=== PATIENT | male | born 1995 | race Caucasian/White ===

== ENCOUNTER 2019-08-01 19:41 | Emergency (ER) | payer OTHER ==
[~2019-08-01] VITALS: Ht 180.3 cm; Wt 86.4 kg
[2019-08-01] MEDS ORDERED: NS 1,000 ML IV ONE ×2 (20:00→22:45)
[2019-08-01] MEDS ORDERED: MORPHINE 2 MG/ML 1ML VIAL (J2270) As Ordered ONE (20:01)
[2019-08-01] MEDS: MORPHINE 2 MG/ML 1ML VIAL (J2270) IV PRN ×2 (20:04→20:32)
[2019-08-01 20:15] LABS: BASO # 0.1 10^3/uL (0.0-0.2); BASO % 0.9 % (0.0-1.0); EOS # 0.2 10^3/uL (0.0-0.5); HEMATOCRIT 41.7 % (42.0-52.0); HEMOGLOBIN 14.5 g/dl (13.5-17.5); LYMPH # 4.1 10^3/uL (1.5-5.0); LYMPH % 38.5 % (24.0-44.0); MEAN CORPUSCULAR HEMOGLOBIN 29.7 pg (27.0-33.0); MEAN CORPUSCULAR HGB CONC 34.8 g/dl (32.0-36.5); MEAN CORPUSCULAR VOLUME 85.5 fl (80.0-96.0); MONO % 9.5 % (0.0-5.0); NEUTROPHILS # 5.1 10^3/uL (1.5-8.5); NEUTROPHILS % 48.8 % (36.0-66.0); PLATELET COUNT, AUTOMATED 341 10^3/uL (150-450); RED BLOOD COUNT 4.88 10^6/uL (4.30-6.10); WHITE BLOOD COUNT 10.5 10^3/uL (4.0-10.0)
[2019-08-01] MEDS ORDERED: ISOVUE-370 76% 100ML VIAL (Q9967) As Ordered ONE (20:38)
[2019-08-01 20:45] LABS: ALBUMIN 4.1 GM/DL (3.2-5.2); ALT/SGPT 28 U/L (12-78); BILIRUBIN,DIRECT 0.1 MG/DL (0.0-0.2); BILIRUBIN,TOTAL 0.3 MG/DL (0.2-1.0); BLOOD UREA NITROGEN 14 MG/DL (7-18); CALCIUM LEVEL 9.2 MG/DL (8.5-10.1); CARBON DIOXIDE LEVEL 25 MEQ/L (21-32); CHLORIDE LEVEL 108 MEQ/L (98-107); CREATININE FOR GFR 1.05 MG/DL (0.70-1.30); GLOMERULAR FILTRATION RATE > 60.0 (>60); GLUCOSE, FASTING 112 MG/DL (70-100); LIPASE 109 U/L (73-393); POTASSIUM SERUM 3.6 MEQ/L (3.5-5.1); SODIUM LEVEL 143 MEQ/L (136-145); TOTAL PROTEIN 6.8 GM/DL (6.4-8.2)
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
[2019-08-01] MEDS ORDERED: TAMSULOSIN 0.4 MG CAP PO ONE (21:30)
[2019-08-01] MEDS ORDERED: KETOROLAC 30 MG/ML VIAL (J1885) IV ONE (21:30)
[2019-08-01] MEDS ORDERED: CEFD300C PO (22:43)
[2019-08-01] MEDS ORDERED: KETO10TAB PO (22:43)
[2019-08-01] MEDS ORDERED: FLOM0.4C39 PO (22:43)
[2019-08-01] MEDS ORDERED: ONDA4TAB6 PO (22:44)
[2019-08-01 23:25] VITALS: BP 121/81
[2019-08-01 23:29] LABS: APPEARANCE, URINE CLEAR (CLEAR); BACTERIA, URINE AUTO NEGATIVE (NEGATIVE); BILIRUBIN, URINE AUTO NEGATIVE (NEGATIVE); BLOOD, URINE BLOOD 3+ (NEGATIVE); COLOR, URINE YELLOW (YELLOW); GLUCOSE, URINE (UA) AUTO NEGATIVE (NEGATIVE); KETONE, URINE AUTO 1+ mg/dL (NEGATIVE); LEUKOCYTE ESTERASE, URINE AUTO NEGATIVE (NEGATIVE); MUCUS, URINE SMALL (NEGATIVE); NITRITE, URINE AUTO NEGATIVE (NEGATIVE); PROTEIN, URINE AUTO NEGATIVE (NEGATIVE); RBC, URINE AUTO TNTC /HPF (0-3); SQUAMOUS EPITHELIAL CELL UR AU 0 /HPF (0-6); UROBILINOGEN, URINE AUTO 0.2 mg/dL (0.0-2.0); WBC, URINE AUTO 3 /HPF (0-3)
[2019-08-01] MEDS ORDERED: CEFDINIR 300 MG CAP (OMNICEF) PO ONE (23:30)
[2019-08-01] MEDS ORDERED: OXYCODONE/APAP 5MG/325MG(BULK FOR ED) 1 TABLET PO ONE (23:30)
[2019-08-01 23:55] LABS: SPECIFIC GRAVITY URINE AUTO >1.060 (1.002-1.035)
== END 2019-08-01 23:51 | disposition home or self-care (01) ==
LOC: M ED 19:41
DX: N20.1 Calculus of ureter (principal); N23 Unspecified renal colic
CPT/HCPCS: 74177; 76870; 80047; 80048; 80076; 81001; 83690; 85025; 93976; 96361; 96374; 96375; 99283; J1885; J2270; Q9967

== ENCOUNTER 2019-08-04 06:52 | Emergency (ER) | payer OTHER ==
[~2019-08-04] VITALS: Ht 177.8 cm; Wt 86.4 kg
[~2019-08-04 06:52] MED LIST: CEFD300C PO; FLOM0.4C39 PO; KETO10TAB PO; ONDA4TAB6 PO
[2019-08-04] MEDS ORDERED: ONDANSETRON 4MG/2ML VIAL (J2405) IV ONE (07:15)
[2019-08-04] MEDS ORDERED: KETOROLAC 30 MG/ML VIAL (J1885) IV ONE ×2 (07:15→08:00)
--- NOTE | 2019-08-04 09:11 | REP ---
CT abdomen and pelvis without IV or oral contrast: Renal stone protocol. History: Right renal colic. Comparison study: August 01, 2019. CT findings: Digital preliminary injector assembler radiograph is unremarkable. The lung bases are clear on axial CT images. There is no evidence of pleural effusion or pulmonary edema. The liver and the spleen are normal in size homogeneous in texture. No abnormality is noted in the gallbladder or the pancreas. Normal adrenal glands are seen bilaterally. No retroperitoneal mass or adenopathy is observed. Normal appendix is seen. Small and large intestinal bowel loops are unremarkable. Seminal vesicles and prostate are unremarkable. There is a urinary tract calculus at the back wall the bladder 3 mm in diameter at the ureterovesical orifice which may be either recently passed or in the intramural segment of the ureterovesical junction. There is mild to moderate right-sided hydronephrosis and mild right hydroureter. No other ureteral calculus is appreciated. There is no intrarenal calculus on either side. No left-sided hydronephrosis. There is minimal peritoneal fluid in the pelvic reflections. No abdominal wall defect is seen. No bony abnormality is observed. Impression: 3 mm urinary tract calculus at the posterior wall of the urinary bladder with mild right-sided hydronephrosis and hydroureter. Either recently passed stone versus 3 mm stone in the intramural segment of the ureterovesical junction. Otherwise negative. Electronically Signed by Alexander Dash MD 08/04/2019 12:51 P
[2019-08-04 11:11] VITALS: BP 114/59
== END 2019-08-04 11:13 | disposition home or self-care (01) ==
LOC: M ED 06:52
DX: N20.1 Calculus of ureter (principal)
CPT/HCPCS: 74176; 96374; 96375; 99284; J1885; J2405

== ENCOUNTER → 2019-08-13 | Outpatient (REF) | payer OTHER ==
[2019-08-13 18:47] LABS: APPEARANCE, URINE CLEAR (CLEAR); BACTERIA, URINE AUTO NEGATIVE (NEGATIVE); BILIRUBIN, URINE AUTO NEGATIVE (NEGATIVE); BLOOD, URINE BLOOD NEGATIVE (NEGATIVE); COLOR, URINE YELLOW (YELLOW); GLUCOSE, URINE (UA) AUTO NEGATIVE (NEGATIVE); KETONE, URINE AUTO NEGATIVE (NEGATIVE); LEUKOCYTE ESTERASE, URINE AUTO NEGATIVE (NEGATIVE); MUCUS, URINE SMALL (NEGATIVE); NITRITE, URINE AUTO NEGATIVE (NEGATIVE); PROTEIN, URINE AUTO NEGATIVE (NEGATIVE); RBC, URINE AUTO 0 /HPF (0-3); SPECIFIC GRAVITY URINE AUTO 1.018 (1.002-1.035); SQUAMOUS EPITHELIAL CELL UR AU 0 /HPF (0-6); UROBILINOGEN, URINE AUTO 0.2 mg/dL (0.0-2.0); WBC, URINE AUTO 0 /HPF (0-3)
== END ==
LOC: M SMT 17:06
PROVIDERS: ATTEND Nurse Practitioner Women's Health
DX: N13.2 Hydronephrosis with renal and ureteral calculous obstruction (principal)
CPT/HCPCS: 81001; 87086; G0463